=== PATIENT | male | born 1950 | race Caucasian/White ===

== ENCOUNTER → 2017-02-04 | Day surgery (SDC) | payer OTHER, BC, MEDICARE ==
[~2017-02-04] MED LIST: AMLODIPINE BESYL5 MG PO; ANEXSIA 7.5/3251 TA1 PO; ASPIRIN PO; AZOR PO; BENAZEPRIL PO; BYSTOLIC; CONDROITIN; COREG PO; COZAAR100 MG PO; ELIQUIS5 MG PO; FLAX SEED OIL1000 MG PO; FLOMAX0.4 M1 PO; HCTZ PO; HYDROCODON-ACE1 EAC1 PO; MULTI-VITAMIN1 TAB PO; TEKTURNA; TESTOSTERO200 MG/1 M IM; VIT B-12 PO; VITAMIN B-6; ZETIA PO; ZOLPIDEM TARTRAT5 MG PO
--- NOTE | ~2017-02-04 | OR ---
Unit #: [id number] #: [id number] Patient: RAFAEL RESENDIZ [id number] [address] [place], [place] [address] [id number] O MR#: [id number] NAME: RAFAEL RESENDIZ ROOM: Date of Procedure: 02/04/2017 Admission Date: 02/04/2017 Surgeon: Alex Cherry M.D. : 1950 Attending Physician: Alex Cherry M.D. Primary Care Physician: Primary Care Physician No OPERATIVE REPORT PREOPERATIVE DIAGNOSES 1. Herniated nucleus pulposus. 2. Radiculopathy. 3. Back pain. POSTOPERATIVE DIAGNOSES 1. Herniated nucleus pulposus. 2. Radiculopathy. 3. Back pain. PROCEDURE PERFORMED Lumbar epidural steroid injection with intravenous sedation and fluoroscopic guidance for needle localization. INDICATIONS FOR PROCEDURE The patient is a 66-year-old male with longstanding back and lower extremity issues due to left-sided disk herniation. He has been able to avoid surgery with (1)* medical management and p.r.n. epidural steroid injections. (2)* months with each injection. Last injection was done 8 months ago. He did very well for about 4 to 5 months and had trouble getting scheduled (3)* approval for followup injection. The pain has now returned to his back and left lower extremity, typical distribution with evidence of radiculopathy on examination. DESCRIPTION OF PROCEDURE The patient was placed in a seated position. Standard monitors were applied. 1 mg of Versed was given for sedation and anxiolysis, which was adequate. Vital signs remained stable. Sterile prep and drape then of the lumbar area was performed. The skin at the L5 level was localized with 1% lidocaine. An 18-gauge Markerlytead needle was then advanced via loss of resistance technique and fluoroscopic guidance in toward the epidural space. After confirming proper needle tip positioning with fluoroscopy and radiographic contrast, 80 mg Depo-Medrol and 4 mL of 0.125% bupivacaine were deposited. The patient tolerated the procedure otherwise well and was discharged to the recovery room in stable condition. *Faxed to Dr. Cherry' office on 02/05/17 for completion. cd Dictated by... Unit #: [id number] #: [id number] Patient: RAFAEL RESENDIZ Ivana Kaiser/jeffrey TD: 02/04/2017 09:15 JOB #: [id number] OPERATIVE REPORT X Alex Cherry MD X PROCEDURE OPERATIVE NOTE
== END | disposition home or self-care (01) ==
LOC: CCSC 07:16
DX: M51.16 Intervertebral disc disorders with radiculopathy, lumbar region (principal)
CPT/HCPCS: J1040; J2250

== ENCOUNTER → 2017-02-18 | Outpatient (CLI) | payer BC, MEDICARE ==
[2017-02-18 15:09] LABS: HEMATOCRIT 49.7 % (38.0-50.0); HEMOGLOBIN 16.4 gm/dL (13.0-16.0); MEAN CELL VOLUME 88.9 FL (83-96); MEAN CORPUSCULAR HEMOGLOBIN 29.4 PG (28-34); MEAN PLATELET VOLUME 8.6 FL (6.5-11.5); RED BLOOD COUNT 5.58 X10e (3.90-5.60); RED CELL DISTRIBUTION WIDTH 15.5 % (11.0-15.5); WHITE BLOOD COUNT 7.9 X10e3 (4.0-10.5)
[2017-02-18 15:40] LABS: BUN/CREATININE RATIO 15.33; CALCIUM SERUM 8.7 mg/dL (8.4-10.2); CREATININE SERUM 1.5 mg/dL (0.6-1.4); GLOM FILT RATE Estimated 47.8 mL/min (>60); POTASSIUM 4.5 mmol/L (3.5-5.1)
== END | disposition home or self-care (01) ==
LOC: CAMB 14:13
PROVIDERS: Urology
DX: Z01.812 Encounter for preprocedural laboratory examination (principal); C67.2 Malignant neoplasm of lateral wall of bladder; N40.1 Benign prostatic hyperplasia with lower urinary tract symptoms
CPT/HCPCS: 36415; 80048; 85027

== ENCOUNTER → 2017-02-25 | Day surgery (SDC) | payer BC, MEDICARE ==
--- NOTE | ~2017-02-25 | OR ---
Unit #: [id number] #: [id number] Patient: RAFAEL RESENDIZ [id number] [address] [address] [id number] O MR#: [id number] NAME: RAFAEL RESENDIZ ROOM: Date of Procedure: 02/25/2017 Admission Date: 02/25/2017 Surgeon: Santosh Metcalf M.D. : 1950 Attending Physician: Santosh Metcalf M.D. Primary Care Physician: Primary Care Physician No OPERATIVE REPORT PREOPERATIVE DIAGNOSIS Bladder cancer, right lateral wall. POSTOPERATIVE DIAGNOSIS Bladder cancer, right lateral wall. PROCEDURE PERFORMED Transurethral resection of bladder tumor, small. ANESTHESIA General. INDICATIONS FOR PROCEDURE Mr. 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 The risks, benefits, and alternatives including bleeding, infection, damage to adjacent structures, need for further surgery, bladder perforation, and all other perioperative risks were discussed. Cardiac clearance was obtained to hold his Eliquis. Full informed consent was obtained. He wished to proceed. DESCRIPTION OF PROCEDURE The patient was taken to the operative suite and properly identified. After the application of satisfactory general anesthetic, the patient was placed in the dorsal lithotomy position. All pressure points were padded to the satisfaction of surgical, anesthetic, and nursing teams. His genitalia were prepped and draped in usual sterile fashion. I introduced a rigid 22-Sami cystoscope. The entire urethra was normal. The prostate exhibited 1+ bilobar hyperplasia. The bladder had a papillary bladder tumor along the right lateral wall. I used the cold cup biopsy forceps to remove the tumor in its entirety. I used a Bovie to fulgurate this. Hemostasis was excellent. The bladder was emptied. The scope was removed. The Uro-jet was passed. The patient tolerated the procedure well without complications. He was transported stable and extubated to PACU. PLAN The plan will be for the patient to follow up in about 2 weeks to discuss its pathology. Dictated by... Santosh Metcalf M.D. Unit #: [id number] #: [id number] Patient: RAFAEL RESENDIZ COLLEEN/modl TD: 02/25/2017 08:29 JOB #: [id number] OPERATIVE REPORT Page 1 of 1 X Santosh Metcalf MD PROCEDURE OPERATIVE NOTE
== END | disposition home or self-care (01) ==
LOC: CSUR 05:41
DX: C67.2 Malignant neoplasm of lateral wall of bladder (principal); I10 Essential (primary) hypertension; I48.91 Unspecified atrial fibrillation; N40.0 Benign prostatic hyperplasia without lower urinary tract symptoms; K21.9 Gastro-esophageal reflux disease without esophagitis; Z87.891 Personal history of nicotine dependence; Z79.01 Long term (current) use of anticoagulants; Z79.899 Other long term (current) drug therapy; Z98.890 Other specified postprocedural states
CPT/HCPCS: 88307; J0330; J0690; J2250; J2405; J2710; J3010

== ENCOUNTER → 2017-06-01 | Day surgery (SDC) | payer OTHER ==
--- NOTE | ~2017-06-01 | OR ---
Unit #: [id number] #: [id number] Patient: RAFAEL RESENDIZ [id number] [address] [address] [id number] O MR#: [id number] NAME: RAFAEL RESENDIZ. ROOM: Date of Procedure: 06/01/2017 Admission Date: 06/01/2017 Surgeon: Alex Cherry M.D. : 1950 Attending Physician: Alex Cherry M.D. Referring Physician: Alex Cherry M.D. Primary Care Physician: Cameron Ley M.D. OPERATIVE REPORT PREOPERATIVE DIAGNOSES Herniated nucleus pulposus, radiculopathy, back pain. POSTOPERATIVE DIAGNOSES Herniated nucleus pulposus, radiculopathy, back pain. PROCEDURE PERFORMED Lumbar epidural steroid injection with intravenous sedation and fluoroscopic guidance for needle localization. INDICATIONS FOR PROCEDURE The patient is a 66-year-old male, who had return of back and left lower extremity pain due to known left L4-L5 disk herniation and He has done very well with aggressive rehabilitation. He still requires p.r.n. epidural steroid injections every 4 to 6 months. Last injection was done 4 months ago. Prior to that, he had done well for 8 months. DESCRIPTION OF PROCEDURE The patient was placed in a seated position. Standard monitors were applied. 2 mg of Versed were given for sedation and anxiolysis, which were adequate. Vital signs remained stable. Sterile prep and drape then of the lumbar area was performed. The skin then at the L4-L5 level was localized with 1% lidocaine. An 18-gauge Haratead needle was then advanced via loss of resistance technique and fluoroscopic guidance in toward the epidural space. After confirming proper positioning with fluoroscopy and radiographic contrast, 80 mg of Depo-Medrol and 4 mL of 0.125% bupivacaine were deposited. The patient tolerated the procedure otherwise well and was discharged to the recovery room in stable condition. Dictated by... Alex Cherry M.D. LHP/modl TD: 06/01/2017 17:56 JOB #: [id number] Unit #: [id number] #: [id number] Patient: RAFAEL RESENDIZ OPERATIVE REPORT Page 1 of 1 X Alex Cherry MD X PROCEDURE OPERATIVE NOTE
== END | disposition home or self-care (01) ==
LOC: CCSC 07:05
PROVIDERS: Pain Medicine Pain Medicine
PROC: 3E0R33Z Introduction of Anti-inflammatory into Spinal Canal, Percutaneous Approach (ICD-10-PCS; principal; 2017-06-01 07:45)
DX: M51.16 Intervertebral disc disorders with radiculopathy, lumbar region (principal); K21.9 Gastro-esophageal reflux disease without esophagitis; I10 Essential (primary) hypertension; Z79.899 Other long term (current) drug therapy
CPT/HCPCS: J1040; J2250